=== PATIENT | male | born 1975 | race Hispanic/Latino ===

== ENCOUNTER 2017-02-19 14:30 | Outpatient (CLI) | payer OTHER | END 2017-02-19 14:31 | disposition home or self-care (01) | LOC: DTY/OP 14:30 | PROVIDERS: ATTEND Surgery | DX: G47.30 Sleep apnea, unspecified (principal); E78.5 Hyperlipidemia, unspecified; E11.9 Type 2 diabetes mellitus without complications | CPT/HCPCS: 97802 ==

== ENCOUNTER 2017-02-25 15:01 | Outpatient (CLI) | payer OTHER | END 2017-02-25 15:02 | disposition home or self-care (01) | LOC: LABBT 15:01 | PROVIDERS: ATTEND Surgery | DX: Z01.818 Encounter for other preprocedural examination (principal); E66.01 Morbid (severe) obesity due to excess calories ==

== ENCOUNTER 2017-02-25 16:00 | Inpatient (IN) | payer OTHER ==
[2017-03-14] MEDS ORDERED: Bupivacaine/Epinephrine 0.25% 30 ML VIAL ONE (06:40)
[2017-03-14] MEDS ORDERED: CEFAZOLIN/Water 2 GM/20 ML SYRINGE ONE (06:52)
[2017-03-14] MEDS ORDERED: Heparin 5,000 UNITS/ML VIAL ONE (06:52)
[2017-03-14] MEDS ORDERED: Midazolam HCl 2 mg/2 ml Vial ONE ×2 (07:17→07:19)
[2017-03-14] MEDS ORDERED: Lidocaine 1% (PF) 30 ML VIAL ONE (07:19)
[2017-03-14] MEDS ORDERED: Fentanyl 100 MCG/2 ML VIAL ONE ×2 (07:19→09:07)
[2017-03-14] MEDS ORDERED: Glycopyrrolate 0.2 MG/ML 5 ML SYRINGE ONE (07:40)
[2017-03-14] MEDS ORDERED: Dexamethasone 20 MG/5 ML VIAL ONE (07:40)
[2017-03-14] MEDS ORDERED: Ondansetron HCl/PF 4 MG/2 ML Vial ONE (07:40)
[2017-03-14] MEDS ORDERED: Propofol 200 MG/20 ML VIAL ONE (07:40)
[2017-03-14] MEDS ORDERED: Ketorolac Tromethamine 30 MG/ML VIAL ONE (07:40)
[2017-03-14] MEDS ORDERED: Lidocaine 1% PF 5 ML VIAL ONE (07:40)
[2017-03-14] MEDS ORDERED: Promethazine HCl 25 MG/ML VIAL SLOW IVP PRN (08:42)
[2017-03-14] MEDS ORDERED: HYDROmorphone 2 MG/ML VIAL SLOW IVP PRN (08:42)
[2017-03-14] MEDS ORDERED: Ondansetron HCl/PF 4 MG/2 ML Vial IVP PRN ×3 (08:42→08:44)
[2017-03-14] MEDS ORDERED: Naloxone HCl 0.4 mg/ml Vial IV PRN (08:42)
[2017-03-14] MEDS ORDERED: Zolpidem Tartrate 5 MG TAB PO PRN (08:42)
[2017-03-14] MEDS ORDERED: diphenhydrAMINE 50 MG/ML VIAL IVP PRN ×2 (08:42→08:44)
[2017-03-14] MEDS ORDERED: diphenhydrAMINE 50 MG/ML VIAL IM PRN (08:42)
[2017-03-14] MEDS ORDERED: HYDROmorphone 10 mg/100 ml CADD IVPB PRN (08:42)
[2017-03-14] MEDS ORDERED: Promethazine HCl 25 MG/ML VIAL IM PRN ×3 (08:42→08:44)
[2017-03-14] MEDS ORDERED: diphenhydrAMINE 25 MG CAP PO PRN (08:42)
[2017-03-14] MEDS ORDERED: HumaLOG 300 UNITS/3 ML VIAL SC PRN (08:44)
[2017-03-14] MEDS ORDERED: Dextrose 50% Abboject 50 ML SYRINGE SLOW IVP PRN (08:44)
[2017-03-14] MEDS ORDERED: Dextrose 5% in Water 1,000 ML IV PRN (08:44)
[2017-03-14] MEDS ORDERED: hydrALAZINE 20 MG/ML VIAL SLOW IVP PRN (08:44)
[2017-03-14] MEDS ORDERED: Hydrocodone-Acetamin 15 ML UDCUP PO PRN (08:44)
[2017-03-14] MEDS ORDERED: [UNRECOGNIZED DRUG - REMARK] FS SCH (08:45)
--- NOTE | 2017-03-14 08:52 | OP ---
PREOPERATIVE DIAGNOSIS: Morbid obesity. SURGEON: Phillip Vines M.D. PROCEDURES PERFORMED: Laparoscopic sleeve gastrectomy, esophagogastroscopy. INDICATIONS: A 41-year-old male, morbidly obese, who has attempted multiple weight loss programs wi thout success. FINDINGS: A 38 Marshallese bougie used. PROCEDURE IN DETAIL: After informed consent was obtained, the patient was taken to the operating ro om and given general endotracheal anesthesia. She was placed in the supine position. The abdomen w as prepped and draped in the usual fashion. Local anesthesia infiltrated subcutaneously and deep. A 12 mm incision was performed approximately 8 inches below the xiphoid slightly to the left. Veres s needle inserted. Drop test performed. Pneumoperitoneum was created to a volume of 2 liters of ca rbon dioxide. Utilizing a bladeless 12 mm trocar and 0 degree laparoscope, direct visual entry in t he abdominal cavity was performed. Pneumoperitoneum was created to a pressure of 15 mmHg. The iesha ent placed in steep reverse Trendelenburg position and Nathansen liver retractor inserted. Left lob e of liver retracted superiorly. The pylorus was identified and a 12 mm port placed on the right be neath it and two 12s placed left subcostal. The omentum was taken off the greater curvature 5 cm fr om the pylorus utilizing the LigaSure. Short gastrics divided with the LigaSure and left crura defi malu with the LigaSure. A 38-Marshallese bougie inserted directed into the antrum. The linear 60 mm gree n load stapler used to divide the antrum to the bougie, a gold load used along the bougie, and a ser ies of blues through the angle of His. Intraoperative endoscopy was performed. The video endoscope inserted under direct vision and advanced into the sleeve. The staple line inspected. There was n o bleeding. Staple line then tested by inflating the new stomach with pressurized air under water. There was no air leak. Stomach decompressed. Scope removed. The remnant stomach removed from the abdomen through the left lateral port site. The fascia closed with 0 Vicryl suture and the GraNee needle. Hemostasis was assured. Trocars and retractors removed. The skin closed with interrupted 4-0 Rapide. Dermabond applied. The patient tolerated the procedure well and transferred to [facility] in good condition. Sponge and needle count verified correct x2.
[2017-03-14] MEDS ORDERED: HYDROmorphone HCl/PF 0.1 MG/ML 100 ML ONE (09:37)
[2017-03-14 11:40] VITALS: BMI 48.7
[2017-03-14] MEDS ORDERED: Ketorolac Tromethamine 30 MG/ML VIAL IVP SCH ×2 (12:00)
[2017-03-14] MEDS ORDERED: Acetaminophen 1,000 MG in Premix Bag 1 BAG IVPB SCH (12:00)
[2017-03-14] MEDS: Pantoprazole 40 MG VIAL IVP SCH (13:33)
[2017-03-14] MEDS: Acetaminophen 1,000 MG in Premix Bag 1 BAG IVPB SCH ×2 (13:33→20:38)
[2017-03-14] MEDS: 1/2 NS w/KCL 20 mEq 1,000 ML IV SCH ×2 (13:34→18:11)
[2017-03-14] MEDS: Ketorolac Tromethamine 30 MG/ML VIAL IVP SCH ×2 (15:01→20:38)
[2017-03-14] MEDS: CEFAZOLIN/Water 2 GM/20 ML SYRINGE SLOW IVP SCH ×2 (15:01→23:39)
[2017-03-15] MEDS: Ketorolac Tromethamine 30 MG/ML VIAL IVP SCH ×2 (02:27→09:22)
[2017-03-15] MEDS: Acetaminophen 1,000 MG in Premix Bag 1 BAG IVPB SCH ×2 (02:27→09:24)
[2017-03-15] MEDS: 1/2 NS w/KCL 20 mEq 1,000 ML IV SCH ×2 (02:34→09:24)
[2017-03-15 05:49] LABS: #Lymphocytes 1.6 thou/uL (1.20-3.40); #Neutrophils 11.5 thou/uL (1.40-6.50); %Basophils 0.2 % (0.0-1.0); %Eosinophils 0.1 % (0.0-10.0); %Lymphocytes 11.2 % (21.0-51.0); %Monocytes 6.7 % (0.0-10.0); Hematocrit 36.4 % (42.0-52.0); Mean Platelet Volume 8.6 fL (7.4-10.4); Red Blood Cell (RBC) Count 3.85 mill/uL (4.70-6.10); White Blood Cell (WBC) Count 14.1 thou/uL (4.8-10.8)
[2017-03-15 06:07] LABS: Anion Gap 11 mmol/L (10-20); BUN (Urea Nitrogen) 32 mg/dL (8.9-20.6); Calc. Creatinine Clearance 278 mL/min (70-130); Calcium 8.5 mg/dL (7.8-10.44); Carbon Dioxide 23 mmol/L (22-29); Chloride 106 mmol/L (98-107); Estimated GFR-MDRD Greater than 90
[2017-03-15] MEDS: Pantoprazole 40 MG VIAL IVP SCH (09:00)
[2017-03-15] MEDS ORDERED: Enoxaparin Sodium 40 MG/0.4 ML SYRINGE SC SCH (09:00)
--- NOTE | 2017-03-15 09:57 | RAD ---
MODIFIED UPPER GI: INDICATION: History of gastric sleeve procedure. FLUOROSCOPIC TIME: 0.8 minutes. TOTAL EXPOSURE: 27.486 uGy*\S\cm2. FINDINGS: There is no evidence of extraluminal extravasation or obstruction. IMPRESSION: No evidence of extraluminal extravasation or obstruction at the gastroplasty site. POS: GILBERTO
[2017-03-15 12:14] VITALS: BP 110/68; TEMP 98.7
--- NOTE | 2017-03-15 12:24 | DIS ---
DISCHARGE DIAGNOSIS: Morbid obesity. SURGEON: Dr. Vines. PROCEDURES PERFORMED: Laparoscopic sleeve gastrectomy, intraoperative esophagogastroscopy and posto perative Gastrografin swallow. HOSPITAL COURSE: The patient was admitted, taken to the operating room where he underwent sleeve ga strectomy. Postoperatively, he has done well. The swallow was fine. He started liquids. He is to lerating them well. He is discharged home in good condition on hydrocodone and Zofran. He will fol low up with me in 2 weeks.
== END 2017-03-15 14:08 | disposition home or self-care (01) | DRG 621 ==
LOC: SURG A 03-14 05:58
PROVIDERS: ADMIT Surgery; ATTEND Surgery
PROC: 0DB64Z3 Excision of Stomach, Percutaneous Endoscopic Approach, Vertical (ICD-10-PCS; principal; 2017-03-14)
PROC: 0DJ08ZZ Inspection of Upper Intestinal Tract, Via Natural or Artificial Opening Endoscopic (ICD-10-PCS; 2017-03-14)
DX: E66.01 Morbid (severe) obesity due to excess calories (principal); E78.5 Hyperlipidemia, unspecified; K21.9 Gastro-esophageal reflux disease without esophagitis; Z68.42 Body mass index [BMI] 45.0-49.9, adult; G47.30 Sleep apnea, unspecified
CPT/HCPCS: 36415; 36416; 74241; 80048; 85025; 88307; 88312; 94760; C9113; J0131; J1100; J1170; J1644; J1650; J1885; J2001; J2250; J2405; J2550; J2704; J3010